=== PATIENT | male | born 1970 | race Caucasian/White ===

== ENCOUNTER 2022-08-18 13:56 | Emergency (ER) | payer OTHER, SELFPAY ==
--- NOTE | ~2022-08-18 | XR_ITS ---
EXAMINATION: XR elbow LT min 3V, XR shoulder LT min 2V CLINICAL INFORMATION: Reason for Exam left arm/shoulder pain COMPARISON: None. TECHNIQUE: 3 views left shoulder; AP, oblique, and lateral views left elbow FINDINGS: Left shoulder: No acute fracture or dislocation. Glenohumeral joint space is maintained. There is very small amount of ill-defined soft tissue calcification adjacent to the greater possibly lesser tuberosities, possibly a small amount of hydroxyapatite deposition/calcific tendinopathy of the rotator cuff. Acromiohumeral interval is maintained. AC joint is congruent and intact with joint space, subchondral sclerosis and small osteophytes. The visualized left lung is grossly clear. Left elbow: No acute fracture or dislocation. No elbow joint effusion. Joint spaces are maintained. No osteophytes are seen. Minimal enthesophyte formation at the medial epicondyle noted. No osseous lesion. XR/XR elbow LT min 3V IMPRESSION: 1. No acute fracture or dislocation at the left shoulder or elbow. 2. Mild acromioclavicular arthropathy. 3. Small amount of soft tissue calcification adjacent to the greater and possibly lesser tuberosities, possibly a small amount of hydroxyapatite deposition/calcific tendinopathy of the rotator cuff.
--- NOTE | ~2022-08-18 | XR_ITS ---
EXAMINATION: XR elbow LT min 3V, XR shoulder LT min 2V CLINICAL INFORMATION: Reason for Exam left arm/shoulder pain COMPARISON: None. TECHNIQUE: 3 views left shoulder; AP, oblique, and lateral views left elbow FINDINGS: Left shoulder: No acute fracture or dislocation. Glenohumeral joint space is maintained. There is very small amount of ill-defined soft tissue calcification adjacent to the greater possibly lesser tuberosities, possibly a small amount of hydroxyapatite deposition/calcific tendinopathy of the rotator cuff. Acromiohumeral interval is maintained. AC joint is congruent and intact with joint space, subchondral sclerosis and small osteophytes. The visualized left lung is grossly clear. Left elbow: No acute fracture or dislocation. No elbow joint effusion. Joint spaces are maintained. No osteophytes are seen. Minimal enthesophyte formation at the medial epicondyle noted. No osseous lesion. XR/XR shoulder LT min 2V IMPRESSION: 1. No acute fracture or dislocation at the left shoulder or elbow. 2. Mild acromioclavicular arthropathy. 3. Small amount of soft tissue calcification adjacent to the greater and possibly lesser tuberosities, possibly a small amount of hydroxyapatite deposition/calcific tendinopathy of the rotator cuff.
[2022-08-18 14:17] VITALS: BP 155/105; PULSE 90; RESP 18; TEMP 36.8; O2SAT 97; BMI 34.9
--- NOTE | 2022-08-18 14:19 | ED.EXTPRO ---
HPI - Extremity Problem General Chief complaint: Extremity Problem Stated complaint: L Arm Pain No Injury Time Seen by Provider: 08/18/22 16:45 Source: patient Mode of arrival: ambulatory Limitations: no limitations History of Present Illness HPI Narrative: 52yoM presenting ot the ED c c/o left arm pain right above the elbow below the left shoulder that started today. He denies any injury to the arm. He denies any dizziness, change in vision, nausea/vomiting, jaw pain, paresthesias, chest pain or shortness of breath, rashes, recent falls or trauma, abdominal pain, back pain, ever having this pain in the past or any other symptoms complaints or concerns at this time. MD Complaint: extremity pain Onset (ago): day(s) (started today) Pain Consistency: constant Location: left and upper extremity (humerus) Quality: aching and constant Radiation: distal Relieving factors: nothing Exacerbating factors: range of motion Associated symptoms: denies other symptoms Context: other (Recurrent uses of that arm to his work) Related Data Previous Rx's Medication Instructions Recorded acetaminophen 500 mg tablet 1,000 mg PO Q6H PRN Tendinitis 08/18/22 (Acetaminophen Extra Strength) calcified #30 tabs Allergies Allergy/AdvReac Type Severity Reaction Status Date / Time No Known Allergies Allergy Verified 08/18/22 14:18 Review of Systems Review of Systems: Constitutional : No Weight loss, No Fever, No Chills, No Night Sweats, No Fatigue, No Malaise ENT/Mouth : No Hearing loss, No Ear Pain, No Nasal Congestion, No Sinus Pain, No Hoarseness, No sore throat, No Rhinorrhea, No Swallowing Difficulty Eyes: No Eye Pain, No Swelling, No Redness, No Foreign Body, No Discharge, No Vision Changes Cardiovascular : No Chest Pain, No SOB, No Dyspnea on Exertion, No Orthopnea, No Edema, No Palpitations Respiratory : No Cough, No Sputum, No Wheezing, No Smoke Exposure, No Dyspnea Gastrointestinal : No Nausea, No Vomiting, No Diarrhea, No Constipation, No abdominal Pain, No Hematochezia, No Melena Genitourinary : no irregular bleeding, No Dysuria, No Urinary Frequency, No Hematuria, No Urinary Incontinence, No Urgency, No Flank Pain, No Urinary Flow Changes, No Hesitancy Musculoskeletal : + left shoulder/arm joint pain, No Myalgias, No Joint Swelling Skin : No Skin Lesions, No rash Neuro : No Weakness, No Numbness, No Paresthesias, No Loss of Consciousness, No Dizziness, No Headache Psych : No Anxiety/Panic, No Depression, No SI/HI/AH/VH, No Social Issues, Heme/Lymph: No Bruising, No Bleeding,No Lymphadenopathy Endocrine : No Polyuria, No Polydipsia, No Temperature Intolerance Yes all other systems are reviewed and are negative [facility] Past Medical History Attestation statement: The following information was validated with the patient. Source: old records reviewed and nursing notes reviewed Physical Exam Vital Signs: Vital Signs: Last Vital Signs Temp 98.2 F 08/18/22 14:17 Pulse 90 08/18/22 14:17 Resp 18 08/18/22 14:17 BP 155/105 H 08/18/22 14:17 Pulse Ox 97 08/18/22 14:17 O2 Del Method 08/18/22 14:17 BMI result Body Mass Index 34.9 vital signs have been reviewed as normal and appeared to be correct. Blood pressure 155/105 Heart rate normal. Respiration rate normal. Temperature normal. Oxygen saturation normal. Appearance: Alert. Oriented X3. No acute distress. Head: Normal external exam. Normocephalic. Atraumatic. Eyes: PERRLA. EOMI. Conjunctiva and sclera normal. Eyelids normal. ENT: Pharynx normal. Uvula midline. Moist mucous membranes. Neck: Normal inspection. Neck supple. FROM. CVS: Normal heart rate and rhythm. Respiratory: No respiratory distress. Painless inspiration. Skin: Skin warm and dry. Normal skin color. Normal skin turgor. No rashes/lesions/lacerations noted. Extremities: Patient mild tenderness palpation to the left shoulder joint/proximal aspect of the humerus with limited range of motion with raising the arm over his head or abduction. No obvious deformities. No obvious ligamentous or tendon injury noted. Not consistent with septic joint or muscle rupture. Otherwise all other extremities exhibit normal range of motion nontender. Neuro: Oriented X 3. No motor deficit. No sensory deficit. Reflexes normal. Normal steady gait. No focal neuro deficits noted. Vascular: + radial pulses/+ 2 distal pedal pulses/+2 dorsalis pedis b/l. Normal cap refill. No cyanosis noted to upper extremity nails and lower extremity toes nails. Course Course Course Narrative: THEO-14:20PM - 52yoM presenting ot the ED c c/o left arm pain right above the elbow below the left shoulder that started today. He denies any injury to the arm. He denies any dizziness, change in vision, nausea/vomiting, jaw pain, paresthesias, chest pain or shortness of breath, rashes, recent falls or trauma, abdominal pain, back pain, ever having this pain in the past or any other symptoms complaints or concerns at this time. Plan: Xray of left elbow/shoulder patient is stable he will go back to the waiting room to be further [place] [facility] [place] Reevaluation(s) Reevaluation #1: X-ray revealed chronic changes such as calcified tendinitis. I printed out the results and handed to the patient. Will DC home exercise strength Tylenol. And instructions to follow-up with PCP to have a referral to physical therapy and possibly Orthopedics and to return if any new or worsening symptoms. Patient understands agrees with this plan. Left shoulder/elbow x-ray FINDINGS: Left shoulder: No acute fracture or dislocation. Glenohumeral joint space is maintained. There is very small amount of ill-defined soft tissue calcification adjacent to the greater possibly lesser tuberosities, possibly a small amount of hydroxyapatite deposition/calcific tendinopathy of the rotator cuff. Acromiohumeral interval is maintained. AC joint is congruent and intact with joint space, subchondral sclerosis and small osteophytes. The visualized left lung is grossly clear. Left elbow: No acute fracture or dislocation. No elbow joint effusion. Joint spaces are maintained. No osteophytes are seen. Minimal enthesophyte formation at the medial epicondyle noted. No osseous lesion. XR/XR shoulder LT min 2V IMPRESSION: 1.? No acute fracture or dislocation at the left shoulder or elbow. 2.? Mild acromioclavicular arthropathy. 3.? Small amount of soft tissue calcification adjacent to the greater and possibly lesser tuberosities, possibly a small amount of hydroxyapatite deposition/calcific tendinopathy of the rotator cuff. Time: 16:52 Discharge Plan Discharge Clinical Impression: Calcifying tendinitis of left shoulder Patient Disposition: Home, Self-Care Instructions: Calcific Tendinitis (ED) Additional Instructions: Call your primary care provider to make a follow-up appointment possible outpatient referral to physical therapy Prescriptions: New acetaminophen [Acetaminophen Extra Strength] 500 mg tablet 1,000 mg PO Q6H PRN (Reason: Tendinitis calcified) Qty: 30 0RF Referrals: [facility] [place] [facility] [Provider Group] (Call to make a follow-up appointment)
== END 2022-08-18 16:55 | disposition home or self-care (01) ==
PROVIDERS: Emergency Provider Student in an Organized Health Care Education/Training Program
DX: M75.32 Calcific tendinitis of left shoulder (principal); M79.602 Pain in left arm
CPT/HCPCS: 73030; 73080; 99282; 99283

== ENCOUNTER 2025-04-11 01:50 | Emergency (ER) | payer OTHER, SELFPAY ==
[2025-04-11 02:29] VITALS: BP 170/86; PULSE 88; RESP 18; TEMP 37.1; O2SAT 97; BMI 30.8
--- NOTE | 2025-04-11 06:15 | ED_ITS ---
HPI - Dental/Oral General Chief complaint: Dental/Oral Stated complaint: dental pain Time Seen by Provider: 04/11/25 06:05 Source: patient Mode of arrival: ambulatory Limitations: no limitations History of Present Illness ED Provider: Dr. Jeannie Orlando HPI Narrative: Patient comes to the emergency room complaining of dental pain. Patient states that long time ago, months he broke a tooth on the upper left side of the mouth. Patient states that he also has issues on both sides, but it has been getting worse for the last few days. Patient denies any fever chills. Patient states that he will call his dentist on Sunday. Related Data Previous Rx's ?Medication ?Instructions ?Recorded acetaminophen 500 mg tablet 1,000 mg (2 x 500 mg) PO Q 6H PRN 08/18/22 (Acetaminophen Extra Strength) Tendinitis calcified #3 0 tabs amoxicillin 500 mg capsule 500 mg PO TID 10 days #30 c aps 04/11/25 chlorhexidine gluconate 0.12 % 15 ml buccal BID #1,893 mL 04/11/25 mouthwash (Periogard) ketorolac 10 mg tablet 10 mg PO Q8H PRN pain #12 ta bs 04/11/25 Allergies Allergy/AdvReac Type Severity Reaction Status Date / Time aspirin Allergy Hives Verified 04/11/25 02:30 Review of Systems Review of Systems: Constitutional : No Weight loss, No Fever, No Chills, No Night Sweats, No Fatigue, No Malaise ENT/Mouth : Complaining of dental pain, No Hearing loss, No Ear Pain, No Nasal Congestion, No Sinus Pain, No Hoarseness, No sore throat, No Rhinorrhea, No Swallowing Difficulty Eyes: No Eye Pain, No Swelling, No Redness, No Foreign Body, No Discharge, No Vision Changes Cardiovascular : No Chest Pain, No SOB, No Dyspnea on Exertion, No Orthopnea, No Edema, No Palpitations Respiratory : No Cough, No Sputum, No Wheezing, No Smoke Exposure, No Dyspnea Gastrointestinal : No Nausea, No Vomiting, No Diarrhea, No Constipation, No abdominal Pain, No Hematochezia, No Melena Genitourinary : no irregular bleeding, No Dysuria, No Urinary Frequency, No Hematuria, No Urinary Incontinence, No Urgency, No Flank Pain, No Urinary Flow Changes, No Hesitancy Musculoskeletal : No joint pain, No Myalgias, No Joint Swelling Skin : No Skin Lesions, No rash Neuro : No Weakness, No Numbness, No Paresthesias, No Loss of Consciousness, No Dizziness, No Headache Psych : No Anxiety/Panic, No Depression, No SI/HI/AH/VH, No Social Issues, Heme/Lymph: No Bruising, No Bleeding,No Lymphadenopathy Endocrine : No Polyuria, No Polydipsia, No Temperature Intolerance [facility] Social History Social History Advance Directives: No Advance Directives Information Provided: Yes Physical Exam Exam: Exam: Appearance: Alert. Oriented X3. No acute distress. Eyes: Pupils equal, round and reactive to light. ENT: Pharynx normal. Patient has poor dentition overall. Several cracked teeth. No obvious abscesses Neck: Normal inspection. Neck supple. No lymph nodes noted. No crepitus CVS: Normal heart rate and rhythm. Pulses normal. Normal S1 and S2 Respiratory: No respiratory distress. Breath sounds normal. No Wheezing. No rales Abdomen: Soft and nontender. No rigidity. No distention. Skin: Skin warm and dry. Normal skin color. Normal skin turgor. Extremities: No lower extremity edema. No Lacerations. No Rash Neuro: Oriented X 3. No motor deficit. No sensory deficit. Moving all extremities. No slurred speech. CN 2 through 12 grossly intact Psych: calm, cooperative, normal affect Vital Signs: Vital Signs: Last Vital Signs Temp 98.7 F 04/11/25 02:29 Pulse 88 04/11/25 02:29 Resp 18 04/11/25 02:29 BP 170/86 H 04/11/25 02:29 Pulse Ox 97 04/11/25 02:29 O2 Del Method Room Air 04/11/25 02:29 BMI result Body Mass Index 30.8 Medical Decision Making Medical Decision Making MDM Narrative: I discussed the physical exam with the patient. Patient will call his dentist on Sunday. Patient was given p.o. amoxicillin and IM ketorolac in the emergency room. Discharge Plan Discharge Clinical Impression: Toothache Patient Disposition: Home, Self-Care Instructions: Toothache (ED) Additional Instructions: Please follow-up with your primary care physician tomorrow. If you have any worsening or new symptoms, please return to the emergency room or call 911 Prescriptions: New ketorolac 10 mg tablet 10 mg PO Q8H PRN (Reason: pain) Qty: 12 0RF Rx Instructions: Do not use this medication with NSAIDs amoxicillin 500 mg capsule 500 mg PO TID 10 Days Qty: 30 0RF chlorhexidine gluconate [Periogard] 0.12 % mouthwash 15 ml buccal BID Qty: 1893 0RF No Action acetaminophen [Acetaminophen Extra Strength] 500 mg tablet 1,000 mg PO Q6H PRN (Reason: Tendinitis calcified) Qty: 30 0RF Print Language: [place]
[2025-04-11 06:28] VITALS: BP 148/84; PULSE 74; RESP 16; TEMP 36.8; O2SAT 97
== END 2025-04-11 06:46 | disposition home or self-care (01) ==
PROVIDERS: Emergency Provider Emergency Medicine
DX: K08.89 Other specified disorders of teeth and supporting structures (principal)
CPT/HCPCS: 96372; 99284; J1885